=== PATIENT | female | born 1980 | race Caucasian/White ===

== ENCOUNTER 2024-06-27 14:02 | Outpatient (CLI) | payer BC, SELFPAY ==
--- NOTE | 2024-06-27 14:40 | CRLHL7_ITS ---
For Patients: As a result of the Century Cures Act, medical imaging exams and procedure reports are released immediately into your electronic medical record. You may view this report before your referring provider. If you have questions, please contact your health care provider. BILATERAL SCREENING MAMMOGRAM WITH COMPUTER-AIDED DETECTION AND TOMOSYNTHESIS TECHNIQUE: CC and MLO views were obtained. These mammographic images have been obtained using full-field digital technique. These mammographic images were interpreted with the benefit of computer-aided detection. Breast Tomosynthesis was used in this interpretation. COMPARISON FILM: 04/21/2021. FINDINGS: The breasts are heterogeneously dense, which may obscure small masses IMPRESSION: There is no radiographic evidence for malignancy. ASSESSMENT: BI-RADS Category 1: Negative RECOMMENDATION: Routine screening mammogram in 1 year. A lay language report of this examination will be provided to the patient. Jason Dawn M.D. Diagnostic Radiologist [email or web address] JULIÁN/Dictated by: Jason Dawn MD @ 06/30/2024 9:33:00 AM (Electronically Signed)
== END 2024-06-27 14:03 | disposition home or self-care (01) ==
LOC: MAMMO 14:05
PROVIDERS: Visit Provider Physician Assistant
DX: Z12.31 Encounter for screening mammogram for malignant neoplasm of breast (principal); R92.2 Inconclusive mammogram; Z01.419 Encounter for gynecological examination (general) (routine) without abnormal findings; Z13.6 Encounter for screening for cardiovascular disorders; Z13.1 Encounter for screening for diabetes mellitus; Z13.29 Encounter for screening for other suspected endocrine disorder
CPT/HCPCS: 77063; 77067; 80061; 84443

== ENCOUNTER 2024-09-04 11:33 | Emergency (ER) | payer BC, SELFPAY ==
[2024-09-04 11:51] VITALS: BP 123/97; PULSE 92; RESP 22; TEMP 36.6; O2SAT 98; BMI 39.9
--- NOTE | 2024-09-04 12:13 | ED_ITS ---
HPI - General Adult General Date Seen: 09/04/24 Chief complaint: Back Injury/Pain Stated complaint: lower back spasm Time Seen by Provider: 09/04/24 11:57 History of Present Illness HPI narrative: 43 yo F with a history of left hip injury with some chronic left hip pain (has had more than 1 arthroscopic surgery, is currently going through the process of workup with the [facility] Orthopedic team. Had a steroid injection. May be leading toward a a eventual left hip replacement. She walks with a chronic limp), also history tobacco use, hypertriglyceridemia, pre diabetes, depression, history of bronchitis. She does not have any significant history of low back problems. No previous lumbar spine surgeries per She presents to the ER today with her and son for pain across her lower lumbar spine and posterior pelvis. She has no recent fall or injury or specific activity that would have ?tweaked? her back. Beginning yesterday morning she woke up with some low back pain. She initially thought the pain might be related to her menstrual cycle because she often get cramps from her period. She is having her period but she is not having any other significant cramping and no anterior abdominal pain. Urination has been normal. Bowel movements normal. No fever. Her back pain has gotten progressively worse and is affecting her lower lumbar spine on both sides of her posterior pelvis. When it is severe and sometimes wraps around to the front of her hips and very proximal anterior thighs. No other pain more distally in her legs. No associated numbness or weakness in her legs. Urination and bowel movements have been normal. Pain is exacerbated when she tries to get up and walk her go from laying to sitting or sitting to laying. Pain is better when she is laying in bed. She has been trying to take ibuprofen but it is not effective in relieving her pain. Related Data Home Medications ?Medication ?Instructions ?Recorded ?Confirmed acetaminophen 500 mg tablet 500 mg PO Q6H PRN 11/22/23 06/27/24 (Tylenol Extra Strength) ibuprofen 200 mg tablet 200 mg PO Q6H PRN 11/22/23 09/04/24 Previous Rx's ?Medication ?Instructions ?Recorded sertraline 50 mg tablet 50 mg PO QDAY #90 tabs 06/28/24 albuterol sulfate 90 mcg/actuation 2 puff inhalation Q4-6H PRN 08/15/24 aerosol inhaler shortness of breath or wheezing #6.7 grams cyclobenzaprine 10 mg tablet 10 mg PO TID PRN muscle spasm #14 09/04/24 tabs hydrocodone 5 mg-acetaminophen 325 1 - 2 tab PO Q6H PRN pain #14 tabs 09/04/24 mg tablet Allergies Allergy/AdvReac Type Severity Reaction Status Date / Time No Known Drug Allergies Allergy Verified 09/04/24 11:59 PFSH PFSH Medical History Left hip pain ?M25.552 - Pain in left hip (ICD-10) Bronchitis ?J40 - Bronchitis, not specified as acute or chronic (ICD-10) Radial head fracture ?S52.123A - Displaced fracture of head of unspecified radius, initial encounter for closed fracture (ICD-10) Fall ?W19.XXXA - Unspecified fall, initial encounter (ICD-10) Arm pain, right ?M79.601 - Pain in right arm (ICD-10) Surgical History H/O tubal ligation ?Z98.51 - Tubal ligation status (ICD-10) S/P hip arthroscopy ?Z98.890 - Other specified postprocedural states (ICD-10) History of delivery ?Z98.891 - History of uterine scar from previous surgery (ICD-10) Social History What is your current living situation?: I presently have a place to live In the past 12 months, utilities in danger of being shut off: no In the past 12 mos, have been you worried that your food would run out before you had money to buy more?: never true In the past 12 mos, the food you bought just didn't last and you didn't have money to buy more?: never true Smoking Status: Current every day smoker How often do you have a drink containing alcohol: monthly or less AUDIT-C Alcohol total score: 1 Non-prescribed substance use: denies use How often does anyone, including family, friends and others, physically hurt you : never How often does anyone, including family, friends and others, insult or talk down to you: never How often does anyone, including family, friends and others, threaten you with harm: never How often does anyone, including family, friends and others, scream or curse at you: never Exam Narrative: Exam Narrative: Constitutional: Appears well-developed and well-nourished. Alert. Very uncomfortable and tearful.. Non toxic. HENT: Head: Atraumatic. Nose: Nose normal. Mouth/Throat: Oral mucosa is clear and moist. no trismus. Pharynx normal. Tonsils symmetric. No tonsillar enlargement, erythema, or exudate. Eyes: Conjunctivae normal. EOM normal. Pupils equal, round, and reactive to light. No scleral icterus. Neck: Normal range of motion. Neck supple. No tracheal deviation present. Cardiovascular: Normal rate, regular rhythm. No gallop. No friction rub. No murmur heard. Symmetric PT artery pulses Pulmonary/Chest: Effort normal. No stridor. No respiratory distress. No wheezes. No rales. No rhonchi . No tenderness. No CVA tenderness. Abdominal: Soft.No distension. No mass. No tenderness. No rebound. No guarding. Musculoskeletal: RUE: Normal range of motion. No tenderness. No deformity LUE: Normal range of motion. No tenderness. No deformity RLE: Normal range of motion. No edema. No tenderness. No deformity LLE: Normal range of motion. No edema. No tenderness. No deformity Able to roll over for back exam. Normal inspection of her back. No midline step-off or point tenderness over the lumbar spine. She is diffusely tender to very light palpation over the entire posterior sacrum and posterior pelvis without any focal specific area of tenderness. No redness. No bruising. No rash. Pelvis is stable. Neurological: Alert and oriented to person, place, and time. Normal strength. CN II-VII intact. No sensory deficit. GCS eye subscore is 4. GCS verbal subscore is 5. GCS motor subscore is 6. Normal coordination Sensory: Normal light touch sensation bilaterally on the anteromedial thigh (L3), medial malleolus (L4), dorsal first web space (L5), lateral malleolus (S1). Strength: 5/5 strength hip flexors (L3) on the rig ht and left 5/5 strength in the quadriceps (L4) on t he right and left 5/5 strength in the tibialis anterior 5/5 strength in the EHL (L5) on the righ t and left 5/5 strength in the gastrocnemius (S1) o n the right and left 5/5 strength in the hamstring on the rig ht and left Negative straight leg raise bilaterally. Skin: Skin is warm and dry. No rash noted. No pallor. Normal capillary refill. Psychiatric: Normal mood. Normal affect. Const: Vital Signs, click to edit/add: Vital Signs - 24 hr 09/04/24 11:51 09/04/24 13:32 09/04/24 13:50 Temperature 97.9 F 97.7 F Pulse Rate [Pulse Oximeter] 92 65 Respiratory Rate 22 18 Blood Pressure [Ri ght Upper Arm] 123/97 H 123/78 Pulse Oximetry 98 98 94 Oxygen Delivery Me thod Room Air Room Air 09/04/24 15:31 Temperature 97.5 F L Pulse Rate [Pulse Oximeter] 68 Respiratory Rate 18 Blood Pressure [Ri ght Upper Arm] 123/73 Pulse Oximetry 99 Oxygen Delivery Me thod Room Air Course Course ED Course: Recheck -nursing notified me that patient receive her Toradol, diazepam, and 0.5 mg of Dilaudid IV but not the 2nd dose. IV then went bad. Question : gina kaufman be give the 2nd dose of Dilaudid intramuscularly? We decided to hold off on further meds before we give her any IM shots. If her pain is improved with these interventions she may not need an IM shot. Reevaluation(s) Reevaluation #1: Recheck- she actually had pretty good pain relief from the meds given IV. Able to sit up. Able to do ambulation trial in the hallway with only minimal ongoing pain. She is overall doing much better. She does request a little bit more pain medication. Will give her oral Center. Vital Signs Vital signs: Initial Vital Signs Temperature 97.9 F 09/04/24 11:51 Temperature Source Temporal Artery Scan 09/04/24 11:51 Pulse Rate 92 09/04/24 11:51 Respiratory Rate 22 09/04/24 11:51 Blood Pressure 123/97 H 09/04/24 11:51 Blood Pressure Mean 105 09/04/24 11:51 Blood Pressure Position Standing 09/04/24 11:51 Pulse Oximetry 98 09/04/24 11:51 Oxygen Delivery Method Room Air 09/04/24 11:51 Vital Signs Temperature 97.9 F 09/04/24 11:51 Pulse Rate 92 09/04/24 11:51 Respiratory Rate 22 09/04/24 11:51 Blood Pressure 123/97 H 09/04/24 11:51 Pulse Oximetry 98 09/04/24 11:51 Oxygen Delivery Method Room Air 09/04/24 11:51 Temperature 97.5 F L 09/04/24 15:31 Pulse Rate 68 09/04/24 15:31 Respiratory Rate 18 09/04/24 15:31 Blood Pressure 123/73 09/04/24 15:31 Pulse Oximetry 99 09/04/24 15:31 Oxygen Delivery Method Room Air 09/04/24 15:31 Medications Administered Medications: Discontinued Medications Generic Name Dose Route Start Last Admin Trade Name Freq PRN Reason Stop Dose Admin Diazepam 5 mg 09/04/24 12:30 09/04/24 12:59 Diazepam 5 Mg/Ml Inj IV 09/04/24 12:31 5 mg ONCE ONE Administration Hydromorphone HCl 1 mg 09/04/24 12:30 09/04/24 13:33 Hydromorphone 0.5 Mg/0.5 Ml Inj IVP 09/04/24 12:31 1 mg ONCE ONE Administration Ketorolac Tromethamine 15 mg 09/04/24 12:30 09/04/24 13:04 Ketorolac 15 Mg/Ml Inj IVP 09/04/24 12:31 15 mg ONCE ONE Administration Medical Decision Making [facility] Narrative Medical decision making narrative: This patient presented with back pain Affecting both sides of her lower lumbar spine/posterior pelvis.. Broad differential considered. The patient did not sustain any trauma, therefore x-rays are not necessary due to the low likelihood of fracture or subluxation. No red flag symptoms to suggest CT and/or MRI is indicated at this point. The patient has not had a fever, saddle/perineal anesthesia, bilateral foot numbness, or bowel or bladder dysfunction. There is no clinical evidence of cauda equina syndrome, discitis, spinal/epidural space hematoma or epidural abscess. The neurological exam is normal and the patient's symptoms seem consistent with a musculoskeletal issues and significant muscle spasm. Discussed in detail with the patient and her and they are in agreement. She also has a history of some chronic left hip pain which causes her to limp which may also be exacerbating her back problems. Pain has improved with interventions in the emergency department. The patient will be discharged with pain medications to use as directed. Ice or heat to the back and stretching exercises. No heavy lifting, bending or twisting. Return if increasing pain, numbness, weakness, or bowel or bladder dysfunction. The patient was advised to schedule follow-up with their primary doctor within 2-3 days to re-assess symptoms. Return precautions reviewed and questions answered. Prescriptions for Center 1-2 q.6 hours p.r.n.. Prescription for Flexeril 10 mg p.o. t.i.d. p.r.n.. Opiate and sedation precautions reviewed. Discharge Plan Discharge Clinical Impression: Low back pain Instructions: Acute Low Back Pain (ED) Additional Instructions: As we discussed, use the pain killers and muscle relaxers if needed for pain but use caution because both these medications and cause dizziness, drowsiness, constipation, and can be addictive. You can use [id number] medications such as Tylenol or ibuprofen 1st if needed for pain. You can use ice packs or warm packs as needed. Come back to the ER right away if you have any problems, especially if you have worsening or severe uncontrolled pain, new numbness or weakness going down your leg or legs, trouble urinating, trouble with bowel movements, high fever, pain wrapping around to the front of your abdomen. If not completely improved within the next 3-5 days, see your regular doctor or come back to the ER for a recheck. Prescriptions: New hydrocodone-acetaminophen 5-325 mg tablet 1 - 2 tab PO Q6H PRN (Reason: pain) Qty: 14 0RF cyclobenzaprine 10 mg tablet 10 mg PO TID PRN (Reason: muscle spasm) Qty: 14 0RF No Action ibuprofen 200 mg tablet 200 mg PO Q6H PRN acetaminophen [Tylenol Extra Strength] 500 mg tablet 500 mg PO Q6H PRN albuterol sulfate 90 mcg/actuation HFA aerosol inhaler 2 puff inhalation Q4-6H PRN (Reason: shortness of breath or wheezing) Qty: 6.7 0RF sertraline 50 mg tablet 50 mg PO QDAY Qty: 90 2RF Rx Instructions: 25mg daily x7 days, then increase to 50mg daily. After 1 week, can increase to 100mg daily. Follow Up/Referrals: Provider,Not a Local [Primary Care Provider] - Stand Alone Forms: [employer] Info Instructions
[2024-09-04] MEDS: diazePAM 5 MG/ML inj IV (12:59)
[2024-09-04] MEDS: KETOROLAC 15 MG/ML inj IVP (13:04)
[2024-09-04 13:32] VITALS: BP 123/78; PULSE 65; RESP 18; TEMP 36.5; O2SAT 98
[2024-09-04] MEDS: HYDROmorphone 0.5 mg/0.5 ml inj 1 MG IVP (13:33)
[2024-09-04 13:50] VITALS: O2SAT 94
[2024-09-04 15:31] VITALS: BP 123/73; PULSE 68; RESP 18; TEMP 36.4; O2SAT 99
[2024-09-04] MEDS: HYDROCODONE-ACETAMIN 5-325 MG 1 TAB PO (15:51)
== END 2024-09-04 16:00 | disposition home or self-care (01) ==
PROVIDERS: Emergency Provider Emergency Medicine
DX: M54.50 Low back pain, unspecified (principal)
CPT/HCPCS: 94761; 96374; 96375; 99283; A9270; J1171; J1885; J3360